=== PATIENT | female | born 1970 | race Caucasian/White ===

== ENCOUNTER 2022-03-06 00:25 | Day surgery (SDC) | payer BC, SELFPAY ==
[2022-02-25 15:31] VITALS: BMI 28.1
[2022-03-06 11:06] VITALS: BP 119/81; PULSE 67; RESP 18; TEMP 36.8; O2SAT 100
[2022-03-06] MEDS: LACTATED RINGERS 1,000 ML 150 ML IV CONT (11:14)
--- NOTE | 2022-03-06 11:21 | PM.IMHP ---
H&P: HPI History of Present Illness Date/Time: 03/06/22 11:21 Chief Complaint: Neoplasia screening. Narrative: This is a 51-year-old white female patient presents for screening colonoscopy. Patient's current weight appetite bowel movements are normal. She denies abdominal pain. She has had no bleeding. Family history is noncontributory. Patient presents today for screening exam. Review of Systems Review of Systems: Review of systems noncontributory. [facility] Past Medical History Medical History Lipoma of torso Normal echocardiogram 04/25/19 Normal nuclear stress test 04/25/19 Palpitations Surgical History Surgical History Hx laparoscopic cholecystectomy 2010 S/P thyroid biopsy 2005 normal Family History Family History Sibling Family history of mental disorder Father Family history of thyroid disease Family history of elevated blood lipids Grandparent Diabetes mellitus Cerebrovascular accident, Onset Age: 60 MGF Mother Family history of elevated blood lipids Cerebrovascular accident, Onset Age: 60 stroke/tias Other Acute myocardial infarction, Onset Age: 40 cousin Heart disease Other Family history of hypothyroidism Social History Social History Smoking status: Never smoker Alcohol intake: current Drinks per week: 2 Alcohol use details: WINE Substance use: never Substance use type: does not use Living arrangements: with family Spiritual care concerns: No Meds Home Medications and Allergies Home Medications Medication Instructions Recorded Confirmed Type buspirone 5 mg tablet 5 mg PO TID #270 tabs 08/20/20 02/25/22 Rx atorvastatin 10 mg tablet 10 mg PO DAILY 07/08/21 02/25/22 History sumatriptan succinate 50 mg tablet See Rx Instructions .Route 09/15/21 02/25/22 Rx .COMPLEX #10 tabs Forfivo XL 450 mg tablet,extended 450 mg PO QAM #90 tabs 12/10/21 02/25/22 Rx release (bupropion HCl) loratadine 10 mg tablet (Claritin) 10 mg PO DAILY PRN Allergy Symptoms 02/12/22 02/25/22 History Synthroid 125 mcg tablet See Rx Instructions .Route 02/17/22 02/25/22 Rx (levothyroxine) .COMPLEX #90 tabs Allergies Allergy/AdvReac Type Severity Reaction Status Date / Time lansoprazole [From Prevacid] AdvReac Severe Vomiting Verified 03/06/22 11:04 Vital Signs Vital Signs - 24 hr 03/06/22 11:06 Temperature 98.2 F Pulse Rate 67 Respiratory Rate 18 Blood Pressure 119/81 Pulse Oximetry 100 Oxygen Delivery Room Air Exam Narrative: Physical exam reveals patient to be alert. Vital signs stable. HEENT exam is unremarkable. Patient is anicteric. Lungs are clear to auscultation and percussion. Heart is without murmur or extra sounds. Abdominal exam bowel sounds are present soft nontender with no hepatosplenomegaly. Digital external rectal exam is normal. Assessment and Plan Assessment and plan (1) Encounter for screening colonoscopy: Code(s): Z12.11 - Encounter for screening for malignant neoplasm of colon Status: Acute Assessment and Plan: Patient presents today for screening colonoscopy. Appears to be at average risk for colon polyps. Further recommendations will be given after endoscopy.
--- NOTE | 2022-03-06 11:23 | WPDANESEPPF ---
Anes - Initial Pre Proc Eval Procedure: Operation Date: 03/06/22 11:30 Proposed Procedures p Screening Colonoscopy - Geovany Vaughn MD Date/Time: 03/06/22 11:23 Surgeon: Geovany Vaughn MD Pre Op Diagnosis: neoplasm screening Patient Data Age: 51 Gender: F Height: 1.73 m Weight: 87.9 kg Last Vital Signs Temp 98.2 F 03/06/22 11:06 Pulse 67 03/06/22 11:06 Resp 18 03/06/22 11:06 BP 119/81 03/06/22 11:06 Pulse Ox 100 03/06/22 11:06 O2 Del Method Room Air 03/06/22 11:06 Allergies Allergy/AdvReac Type Severity Reaction Status Date / Time lansoprazole [From Prevacid] AdvReac Severe Vomiting Verified 03/06/22 11:04 Home Medications Medication Instructions Recorded Confirmed Type buspirone 5 mg tablet 5 mg PO TID #270 tabs 08/20/20 02/25/22 Rx atorvastatin 10 mg tablet 10 mg PO DAILY 07/08/21 02/25/22 History sumatriptan succinate 50 mg tablet See Rx Instructions .Route 09/15/21 02/25/22 Rx .COMPLEX #10 tabs Forfivo XL 450 mg tablet,extended 450 mg PO QAM #90 tabs 12/10/21 02/25/22 Rx release (bupropion HCl) loratadine 10 mg tablet (Claritin) 10 mg PO DAILY PRN Allergy Symptoms 02/12/22 02/25/22 History Synthroid 125 mcg tablet See Rx Instructions .Route 02/17/22 02/25/22 Rx (levothyroxine) .COMPLEX #90 tabs Patient hx anesthesia problems: none Family hx anesthesia problems: none Results Review: All pre-operative results and documents have been reviewed as part of the pre-operative evaluation. [facility] Past Medical History Medical History Lipoma of torso Normal echocardiogram 04/25/19 Normal nuclear stress test 04/25/19 Palpitations Surgical History Surgical History Hx laparoscopic cholecystectomy 2010 S/P thyroid biopsy 2005 normal Family History Family History Sibling Family history of mental disorder Father Family history of thyroid disease Family history of elevated blood lipids Grandparent Diabetes mellitus Cerebrovascular accident, Onset Age: 60 MGF Mother Family history of elevated blood lipids Cerebrovascular accident, Onset Age: 60 stroke/tias Other Acute myocardial infarction, Onset Age: 40 cousin Heart disease Other Family history of hypothyroidism Social History Social History Smoking status: Never smoker Alcohol intake: current Drinks per week: 2 Alcohol use details: WINE Substance use: never Substance use type: does not use Living arrangements: with family Spiritual care concerns: No Anes - Eval Final PreProcedure Day of Procedure 03/06/22 11:23 Patient weight: normal Heart: regular rate and rhythm Lungs: clear to auscultation Airway: Mallampati scale class II Neurological: alert and oriented Last oral intake: >/= 8 hours ASA classification: II Emergent: no Anesthetic plan: proceed Anesthesia type and monitoring: general GIVS and standard monitoring Results Review: All pre-operative results and documents have been reviewed as part of the pre-operative evaluation. Informed Consent: The patient's anesthetic plan and its attendant risks and benefits were discussed with the patient/family/POA. Questions were solicited and answers provided to the satisfaction of the patient/family/POA.
[2022-03-06 12:29] VITALS: BP 111/70; PULSE 81; RESP 18; O2SAT 100
[2022-03-06 12:39] VITALS: BP 111/74; PULSE 60; RESP 18; O2SAT 100
[2022-03-06 12:49] VITALS: BP 102/76; PULSE 61; RESP 15; O2SAT 100
== END 2022-03-06 13:25 | disposition home or self-care (01) ==
PROVIDERS: PCP Family Medicine; Visit Provider Internal Medicine Gastroenterology
PROC: 0DJD8ZZ Inspection of Lower Intestinal Tract, Via Natural or Artificial Opening Endoscopic (ICD-10-PCS; CPT 45378; principal; 2022-03-06 11:30)
DX: K64.8 Other hemorrhoids (principal); D12.2 Benign neoplasm of ascending colon; D12.5 Benign neoplasm of sigmoid colon; E03.9 Hypothyroidism, unspecified; R00.2 Palpitations; Z90.49 Acquired absence of other specified parts of digestive tract
CPT/HCPCS: 45385; 88305; J2704; J7120

== ENCOUNTER 2022-04-15 09:47 | Outpatient (CLI) | payer BC, SELFPAY ==
--- NOTE | 2022-04-15 11:00 | NEURO_ITS ---
Impression: # Complains of left hand pain. # Normal nerve conduction study. # Normal needle/EMG exam. # Clinical correlation recommended. Nerve Conduction Studies Anti Sensory Summary Table Stim Site NR Peak (ms) P-T Amp (?V) Site1 Site2 Delta-P (ms) Dist (cm) Ted (m/s) Left Median Anti Sensory (2-3nd Digit) Wrist 2.9 61.7 Wrist 2-3nd Digit 2.9 14.0 48 Wrist 2.9 58.4 Wrist 2-3nd Digit 2.9 14.0 48 Right Median Anti Sensory (2-3nd Digit) Wrist 3.0 59.8 Wrist 2-3nd Digit 3.0 14.0 47 Wrist 3.1 54.9 Wrist 2-3nd Digit 3.0 14.0 47 Left Radial Anti Sensory (Base 1st Digit) Wrist 1.8 72.9 Wrist Base 1st Digit 1.8 0.0 Right Radial Anti Sensory (Base 1st Digit) Wrist 1.8 71.6 Wrist Base 1st Digit 1.8 0.0 Left Ulnar Anti Sensory (5th Digit) Wrist 2.5 50.5 Wrist 5th Digit 2.5 14.0 56 Right Ulnar Anti Sensory (5th Digit) Wrist 2.6 69.8 Wrist 5th Digit 2.6 14.0 54 Motor Summary Table Stim Site NR Onset (ms) O-P Amp (mV) Site1 Site2 Delta-0 (ms) Dist (cm) Ted (m/s) Left Median Motor (Abd Poll Brev) Wrist 2.6 6.9 Elbow Wrist 3.8 22.5 59 Elbow 6.4 5.1 Right Median Motor (Abd Poll Brev) Wrist 2.7 7.0 Elbow Wrist 3.6 21.5 60 Elbow 6.3 5.7 Left Ulnar Motor (Abd Dig Minimi) Wrist 2.3 5.2 A Elbow Wrist 4.7 30.5 65 A Elbow 7.0 5.2 B Elbow Wrist 3.6 23.5 65 B Elbow 5.9 5.3 Right Ulnar Motor (Abd Dig Minimi) Wrist 2.3 6.1 A Elbow Wrist 4.4 27.5 62 A Elbow 6.7 5.8 B Elbow Wrist 3.4 21.0 62 B Elbow 5.7 5.2 F Wave Studies NR F-Lat (ms) L-R F-Lat (ms) Left Median (Mrkrs) (Abd Poll Brev) 25.55 0.16 Right Median (Mrkrs) (Abd Poll Brev) 25.70 0.16 Left Ulnar (Mrkrs) (Abd Dig Min) 24.86 0.18 Right Ulnar (Mrkrs) (Abd Dig Min) 24.69 0.18 EMG Side Muscle Nerve Root Ins Act Fibs Amp Dur Recrt Comment Right 1stDorInt Ulnar C8-T1 Nml Nml Nml Nml Nml Right Ext Indicis Radial (Post Int) C7-8 Nml Nml Nml Nml Nml Right Ext Digitorum Radial (Post Int) C7-8 Nml Nml Nml Nml Nml Right BrachioRad Radial C5-6 Nml Nml Nml Nml Nml Right PronatorTeres Median C6-7 Nml Nml Nml Nml Nml Right Abd Poll Brev Median C8-T1 Nml Nml Nml Nml Nml Left 1stDorInt Ulnar C8-T1 Nml Nml Nml Nml Nml Left Ext Indicis Radial (Post Int) C7-8 Nml Nml Nml Nml Nml Left Ext Digitorum Radial (Post Int) C7-8 Nml Nml Nml Nml Nml Left BrachioRad Radial C5-6 Nml Nml Nml Nml Nml Left PronatorTeres Median C6-7 Nml Nml Nml Nml Nml Left Abd Poll Brev Median C8-T1 Nml Nml Nml Nml Nml MTDD
== END 2022-04-15 09:48 | disposition home or self-care (01) ==
LOC: ANHNEURO 09:49
PROVIDERS: PCP Family Medicine; Visit Provider Family Medicine
DX: R53.1 Weakness (principal)
CPT/HCPCS: 95886; 95911

== ENCOUNTER 2023-03-09 01:07 | Day surgery (SDC) | payer BC, SELFPAY ==
[2023-02-24 11:08] VITALS: BMI 30.4
[2023-03-09 09:51] VITALS: BP 116/74; PULSE 69; RESP 16; TEMP 36.3; O2SAT 100
[2023-03-09] MEDS: LACTATED RINGERS 1,000 ML 150 ML IV CONT (09:53)
--- NOTE | 2023-03-09 09:57 | PM.HPGS ---
History of Present Illness History of Present Illness Consent: Risks, benefits, and alternatives have been discussed and questions answered. Patient agrees to proceed with procedure. Chief complaint: hx of colon polyps Narrative: Judie Trevino is a 52 year old female presents for colonoscopy. Patient was found to have a rather large ascending colon polyp removed 1 year ago. Patient presents today for follow-up examination. She states her current weight appetite and bowel movements are normal. Patient denies abdominal pain. She has had no bleeding. Family history noncontributory. Review of Systems Review of Systems: Review of systems noncontributory. [facility], [facility] Past Medical History Medical History Allergies Arthritis of carpometacarpal (CMC) joint of left thumb Lipoma of torso Normal echocardiogram 04/25/19 Normal nuclear stress test 04/25/19 Palpitations Surgical History Surgical History History of back surgery Hx laparoscopic cholecystectomy 2010 S/P thyroid biopsy 2005 normal Family History Family History Sibling Family history of mental disorder Father Family history of thyroid disease Family history of elevated blood lipids Grandparent Diabetes mellitus Cerebrovascular accident, Onset Age: 60 MGF Mother Family history of elevated blood lipids Cerebrovascular accident, Onset Age: 60 stroke/tias Other Acute myocardial infarction, Onset Age: 40 cousin Heart disease Other Family history of hypothyroidism Social History Social History (Updated 02/16/23 @ 15:56 by Sharonda Cohn MA) Smoking status: Never smoker Alcohol intake: never Drinks per week: 2 Alcohol use details: WINE Substance use: never Substance use type: does not use Lack of Transportation: No Lack of Food: Never True Current Housing: I Have Housing Concerned About Future Housing: No Difficulty Paying Gas/Electric Bills: No Difficulty Paying for Meds: No Currently Unemployed: No Education: Bachelor's Degree Difficulty w/ Childcare or Family Care: No Living arrangements: with family Occupation/Education: occupation Additional occupation/education comments: advertising Spiritual care concerns: No Meds Home Medications and Allergies Home Medications Medication Instructions Recorded Confirmed Type atorvastatin 10 mg tablet 10 mg PO DAILY 07/08/21 03/09/23 History loratadine 10 mg tablet (Claritin) 10 mg PO DAILY PRN Allergy Symptoms 02/12/22 03/09/23 History Forfivo XL 450 mg 24 hr tablet, 450 mg PO QAM #30 tabs 02/16/23 03/09/23 Rx extended release (bupropion HCl) Synthroid 112 mcg tablet 112 mcg PO DAILY #90 tabs 02/16/23 03/09/23 Rx (levothyroxine) buspirone 5 mg tablet 5 mg PO DAILY #90 tabs 02/16/23 03/09/23 Rx estradiol 0.05 mg/24 hr semiweekly 1 patch topical 2XW 02/16/23 03/09/23 History transdermal patch progesterone micronized 100 mg 100 mg PO DAILY 02/16/23 03/09/23 History capsule sumatriptan succinate 50 mg tablet See Rx Instructions .Route 02/16/23 03/09/23 Rx .COMPLEX #30 tabs Allergies Allergy/AdvReac Type Severity Reaction Status Date / Time lansoprazole [From Prevacid] AdvReac Severe Vomiting Verified 03/09/23 09:48 Vital Signs Vital Signs - 24 hr 03/09/23 09:51 Temperature 97.4 F L Pulse Rate 69 Respiratory Rate 16 Blood Pressure 116/74 Pulse Oximetry 100 Oxygen Delivery Room Air Exam Narrative: Physical exam reveals patient to be alert. Vital signs stable. HEENT exam is noncontributory. Patient is anicteric. Lungs are clear to auscultation and percussion. Heart is without murmur or extra sounds. Abdomen bowel sounds are present soft nontender with no organomegaly. Digital external rectal exam normal. Assessment and
--- NOTE | 2023-03-09 10:13 | WPDANESEPPF ---
Anes - Initial Pre Proc Eval Procedure: Operation Date: 03/09/23 11:00 Proposed Procedures p Colonoscopy - Geovany Vaughn MD Date/Time: 03/09/23 10:13 Surgeon: Geovany Vaughn MD Pre Op Diagnosis: hx of colon polyps Patient Data Age: 52 Gender: F Height: 1.73 m Weight: 90.7 kg Last Vital Signs Temp 36.3 C L 03/09/23 09:51 Pulse 69 03/09/23 09:51 Resp 16 03/09/23 09:51 BP 116/74 03/09/23 09:51 Pulse Ox 100 03/09/23 09:51 O2 Del Method Room Air 03/09/23 09:51 Allergies Allergy/AdvReac Type Severity Reaction Status Date / Time lansoprazole [From Prevacid] AdvReac Severe Vomiting Verified 03/09/23 09:48 Home Medications Medication Instructions Recorded Confirmed Type atorvastatin 10 mg tablet 10 mg PO DAILY 07/08/21 03/09/23 History loratadine 10 mg tablet (Claritin) 10 mg PO DAILY PRN Allergy Symptoms 02/12/22 03/09/23 History Forfivo XL 450 mg 24 hr tablet, 450 mg PO QAM #30 tabs 02/16/23 03/09/23 Rx extended release (bupropion HCl) Synthroid 112 mcg tablet 112 mcg PO DAILY #90 tabs 02/16/23 03/09/23 Rx (levothyroxine) buspirone 5 mg tablet 5 mg PO DAILY #90 tabs 02/16/23 03/09/23 Rx estradiol 0.05 mg/24 hr semiweekly 1 patch topical 2XW 02/16/23 03/09/23 History transdermal patch progesterone micronized 100 mg 100 mg PO DAILY 02/16/23 03/09/23 History capsule sumatriptan succinate 50 mg tablet See Rx Instructions .Route 02/16/23 03/09/23 Rx .COMPLEX #30 tabs Patient hx anesthesia problems: post op nausea/vomiting Family hx anesthesia problems: none Results Review: All pre-operative results and documents have been reviewed as part of the pre-operative evaluation. [facility] Past Medical History Medical History Allergies Arthritis of carpometacarpal (CMC) joint of left thumb Lipoma of torso Normal echocardiogram 10/22/19 Normal nuclear stress test 04/25/19 Palpitations Surgical History Surgical History History of back surgery Hx laparoscopic cholecystectomy 2010 S/P thyroid biopsy 2005 normal Family History Family History Sibling Family history of mental disorder Father Family history of thyroid disease Family history of elevated blood lipids Grandparent Diabetes mellitus Cerebrovascular accident, Onset Age: 60 MGF Mother Family history of elevated blood lipids Cerebrovascular accident, Onset Age: 60 stroke/tias Other Acute myocardial infarction, Onset Age: 40 cousin Heart disease Other Family history of hypothyroidism Social History Social History Smoking status: Never smoker Alcohol intake: never Drinks per week: 2 Alcohol use details: WINE Substance use: never Substance use type: does not use Lack of Transportation: No Lack of Food: Never True Current Housing: I Have Housing Concerned About Future Housing: No Difficulty Paying Gas/Electric Bills: No Difficulty Paying for Meds: No Currently Unemployed: No Education: Bachelor's Degree Difficulty w/ Childcare or Family Care: No Living arrangements: with family Occupation/Education: occupation Additional occupation/education comments: advertising Spiritual care concerns: No Anes - Eval Final PreProcedure Day of Procedure 03/09/23 10:13 Patient weight: overweight Heart: regular rate and rhythm Lungs: clear to auscultation Airway: Mallampati scale class II Neurological: alert and oriented Last oral intake: >/= 8 hours ASA classification: III Emergent: no Anesthetic plan: proceed Anesthesia type and monitoring: general GIVS and standard monitoring Results Review: All pre-operative results and documents have been reviewed as part of the pre-operative evaluation. Informed C
[2023-03-09 11:21] VITALS: BP 98/75; PULSE 76; RESP 18; O2SAT 98
[2023-03-09 11:31] VITALS: BP 103/69; PULSE 61; RESP 18; O2SAT 100
[2023-03-09 11:41] VITALS: BP 102/69; PULSE 60; RESP 18; O2SAT 100
== END 2023-03-09 11:57 | disposition home or self-care (01) ==
PROVIDERS: PCP Family Medicine; Visit Provider Internal Medicine Gastroenterology
PROC: 0DJD8ZZ Inspection of Lower Intestinal Tract, Via Natural or Artificial Opening Endoscopic (ICD-10-PCS; CPT 45378; principal; 2023-03-09 11:00)
DX: Z09 Encounter for follow-up examination after completed treatment for conditions other than malignant neoplasm (principal); K64.8 Other hemorrhoids; D12.2 Benign neoplasm of ascending colon
CPT/HCPCS: 45385; 88305; J2001; J2704; J7120